=== PATIENT | female | born 1990 | race Caucasian/White ===

== ENCOUNTER → 2019-11-09 | Outpatient (CLI) | payer OTHER ==
--- NOTE | 2019-11-09 17:42 | US ---
EXAM DESCRIPTION: Breast,Right: Ultrasound CLINICAL HISTORY: 29 yearsFemaleABNORMAL CBE . Palpable mass upper outer quadrant right breast. No complaints or personal history of breast cancer. Remote family history of breast cancer. Menarche age 13. Childbirth age 19. Premenopausal. No HRT Lifetime risk of developing breast cancer (Tyrer-Cuzick model)(%): Not calculated due to age under 35 years old. COMPARISON: None. TECHNIQUE: Transcutaneous scanning of the right breast utilizing harper-scale and Doppler modes. Scanning performed by the book salesman ; observation by Dr. Sepulveda. FINDINGS: Ultrasound: Scanning the area of palpation at the 10:00 position 10 cm from the nipple, and 12:00 position 5 cm from the nipple. Heterogeneous fibroglandular tissues with minimal fatty tissues. No dominant solid mass or distinct cyst. No parenchymal edema or large calcifications. No overlying skin changes. IMPRESSION: No suspicious or significant imaging findings. BI-RADS CATEGORY: 1 - NEGATIVE FOLLOW UP: The region of interest should be followed on clinical grounds, and if noted to change in size or character, a targeted/directed follow-up on US examination may be performed Written communication explaining the findings and follow-up, will be mailed to the patient and referring health care provider. The FINDINGS and the FOLLOW-UP plan were reviewed in person with the patient after the examination. According to the [employer], yearly mammograms are recommended starting at age 40 and continuing as long as a woman is in good health. Any breast change noted on a breast self-exam should be reported promptly to the patient's healthcare provider. Breast MRI is recommended for women with an approximately 20-25% or greater lifetime risk of breast cancer, including women with a strong family history of breast or ovarian cancer and women who have been treated for Hodgkin's disease. A negative mammographic report should not delay tissue diagnosis in patients with significant clinical history or physical findings. Extremely dense breast tissue limits the sensitivity of digital mammography. Electronically signed by: Darvin Sepulveda MD 11/09/2019 5:41 PM [employer]
== END ==
LOC: US 13:00
PROVIDERS: ATTEND Family Medicine
DX: N64.59 Other signs and symptoms in breast (principal)